=== PATIENT | female | born 1985 | race Caucasian/White ===

== ENCOUNTER → 2023-02-22 | Outpatient (CLI) | payer OTHER ==
[2023-02-22 18:19] LABS: BASO % 0.5 % (0.0-1.0); EOS # 0.1 10^3/uL (0.0-0.5); EOS % 1.2 % (0.0-3.0); HEMATOCRIT 41.7 % (36.0-47.0); HEMOGLOBIN 13.6 g/dl (12.0-15.5); LYMPH # 2.1 10^3/uL (1.5-5.0); LYMPH % 32.2 % (24.0-44.0); MEAN CORPUSCULAR HEMOGLOBIN 30.2 pg (27.0-33.0); MEAN CORPUSCULAR HGB CONC 32.6 g/dl (32.0-36.5); MEAN CORPUSCULAR VOLUME 92.7 fl (80.0-96.0); MONO # 0.5 10^3/uL (0.0-0.8); MONO % 7.3 % (2.0-8.0); NEUTROPHILS # 3.9 10^3/uL (1.5-8.5); NEUTROPHILS % 58.6 % (36.0-66.0); PLATELET COUNT, AUTOMATED 410 10^3/uL (150-450); WHITE BLOOD COUNT 6.6 10^3/uL (4.0-10.0)
[2023-02-22 18:40] LABS: ERYTHROCYTE SEDIMENTATION RATE 17 mm/hr (0-20)
[2023-02-22 19:04] LABS: ALKALINE PHOSPHATASE 64 U/L (46-116); ALT/SGPT 12 U/L (7.0-40); AST/SGOT 11 U/L (<34); BILIRUBIN,TOTAL 0.5 MG/DL (0.3-1.2); BLOOD UREA NITROGEN 18 MG/DL (9-23); CALCIUM LEVEL 9.4 MG/DL (8.5-10.1); CARBON DIOXIDE LEVEL 25 MMOL/L (20-31); CHLORIDE LEVEL 105 MMOL/L (98-107); CREATININE FOR GFR 0.68 MG/DL (0.55-1.30); GLOMERULAR FILTRATION RATE > 60.0 (>60); GLUCOSE, FASTING 78 MG/DL (60-100); POTASSIUM SERUM 3.9 MMOL/L (3.5-5.1); SODIUM LEVEL 137 MMOL/L (136-145); TOTAL PROTEIN 7.2 G/DL (5.7-8.2)
[2023-02-22 19:05] LABS: THYROID STIMULATING HORMONE 1.306 uIU/ML (0.55-4.78); THYROXINE (T4) 9.2 UG/DL (4.5-10.9)
[2023-02-22 19:06] LABS: FREE THYROXINE INDEX 3.2 % (1.3-4.8); T UPTAKE 34.7 % (22.5-37.0); VITAMIN B12 LEVEL 435 PG/ML (211-911)
== END ==
LOC: M PLALAB 15:56
PROVIDERS: ATTEND Psychiatry & Neurology Neurology
DX: R41.3 Other amnesia (principal); E03.9 Hypothyroidism, unspecified; D51.9 Vitamin B12 deficiency anemia, unspecified

== ENCOUNTER → 2024-12-18 | Outpatient (CLI) | payer OTHER ==
[2024-12-18 12:23] LABS: THYROID STIMULATING HORMONE 1.524 uIU/ML (0.55-4.78)
[2024-12-18 12:24] LABS: FREE THYROXINE INDEX 3.6 % (1.3-4.8); T UPTAKE 40.5 % (22.5-37.0)
[2024-12-18 12:25] LABS: FOLATE 7.3 NG/ML (>5.4)
== END ==
LOC: M PLALAB 08:21
PROVIDERS: ATTEND Psychiatry & Neurology Neurology
DX: R41.3 Other amnesia (principal); G43.909 Migraine, unspecified, not intractable, without status migrainosus; E07.9 Disorder of thyroid, unspecified; E53.8 Deficiency of other specified B group vitamins

== ENCOUNTER → 2025-07-23 | Outpatient (REF) | payer OTHER | LOC: M SFHCDERM 12:52 | PROVIDERS: ATTEND Physician Assistant | DX: D22.4 Melanocytic nevi of scalp and neck (principal) ==